=== PATIENT | male | born 1980 | race Caucasian/White ===

== ENCOUNTER 2019-02-17 05:49 | Inpatient (IN) | payer OTHER ==
[~2019-02-17] VITALS: Ht 172.7 cm; Wt 88.0 kg
[2019-02-17] VITALS (10 sets, daily range): BP systolic 103–134; BP diastolic 54–69
[~2019-02-17 05:49] MED LIST: DOCU-109 PO; POLY17PO29 PO
[2019-02-17] MEDS ORDERED: BUPIVACAINE-EPI 0.25%-1:200000 MPF 30 ML VIAL. ONE (06:06)
[2019-02-17] MEDS ORDERED: PROCHLORPERAZINE 10 MG/2 ML VIAL. IV PRN (07:00)
[2019-02-17] MEDS ORDERED: IV RINGERS,LACTATED 1000ML 1,000 ML IV SCH (07:00)
[2019-02-17] MEDS ORDERED: LIDOCAINE 1% PF 2 ML VIAL. ID PRN (07:00)
[2019-02-17] MEDS ORDERED: fentaNYL PF VIAL 100 MCG/2 ML VIAL IV PRN (07:00)
[2019-02-17] MEDS ORDERED: ONDANSETRON PF 4 MG/2 ML VIAL. IV PRN ×2 (07:00→10:15)
[2019-02-17] MEDS ORDERED: PROPOFOL 20 ML IV ONE (07:34)
[2019-02-17] MEDS ORDERED: LIDOCAINE 2% PF 5 ML VIAL. ONE (07:34)
[2019-02-17] MEDS ORDERED: ROCURONIUM 50 MG/5 ML VIAL. ONE (07:35)
[2019-02-17] MEDS ORDERED: fentaNYL PF VIAL 100 MCG/2 ML VIAL ONE ×2 (07:35→08:54)
[2019-02-17] MEDS ORDERED: SUCCINYLCHOLINE 200 MG/10 ML VIAL. ONE (07:35)
[2019-02-17] MEDS ORDERED: ceFAZolin 2GM PREMIX 2 GM/50 ML BAG IV ONE (08:00)
[2019-02-17] MEDS ORDERED: DEXAMETHASONE SOD PHOS 20 MG/5 ML VIAL. ONE (08:09)
[2019-02-17] MEDS ORDERED: DESFLURANE 61 TO 120 MINUTES IH ONE (08:09)
[2019-02-17] MEDS ORDERED: GLYCOPYRROLATE 1 MG/5 ML VIAL. ONE (08:23)
[2019-02-17] MEDS ORDERED: NEOSTIGMINE METHYLSULFATE 5 MG/5 ML SYRINGE. ONE (08:23)
[2019-02-17] MEDS ORDERED: ONDANSETRON PF 4 MG/2 ML VIAL. ONE (08:23)
[2019-02-17] MEDS ORDERED: ePHEDrine PF IN SALINE 50 MG/10 ML SYRINGE. IV ONE (08:24)
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
[2019-02-17] MEDS ORDERED: 0.9 % SODIUM CHLORIDE 10 ML DISP.SYRIN. IV PRN (10:15)
[2019-02-17] MEDS ORDERED: MORPHINE SULFATE 2 MG/ML VIAL. IV PRN (10:15)
[2019-02-17] MEDS ORDERED: oxyCODONE/APAP 5/325 1 TAB TABLET PO PRN (10:15)
[2019-02-17] MEDS: fentaNYL PF VIAL 100 MCG/2 ML VIAL IV PRN ×2 (10:40→10:51)
[2019-02-17] MEDS: MORPHINE SULFATE 2 MG/ML VIAL. IV PRN ×2 (10:49→10:59)
[2019-02-17] MEDS: HYDROmorphone 2 MG/ML VIAL IV PRN ×2 (11:12→11:26)
[2019-02-17] MEDS: IV DEXTROSE 5%-LACT RINGERS 1,000 ML IV SCH ×2 (12:25→23:24)
[2019-02-17] MEDS: KETOROLAC 15 MG/ML VIAL. IV SCH ×3 (12:26→23:54)
[2019-02-17] MEDS: cefOXitin SODIUM IV Push 1 GM VIAL. IVP SCH ×2 (15:25→21:43)
--- NOTE | 2019-02-17 16:21 | RAD ---
AP view of the abdomen Clinical indications: Incorrect needle count. FINDINGS: Surgical drainage catheter is seen within the right side of the abdomen and pelvis. NG tube is in place and tip is seen within the proximal body of the stomach. 2 metallic foreign bodies are projected over the lateral aspect of the right side of the pelvis. No metallic needle is evident. No significant dilatation of large or small bowel is seen. IMPRESSION: No metallic needle is identified. 2 round metallic foreign bodies are seen within the lateral aspect of the right side of the pelvis. Electronically signed by: Luis E Jacinto MD (02/17/2019 4:18 PM) [facility]
[2019-02-17] MEDS: oxyCODONE/APAP 5/325 1 TAB TABLET PO PRN (19:47)
[2019-02-18] MEDS: oxyCODONE/APAP 5/325 1 TAB TABLET PO PRN ×2 (00:44→09:27)
[2019-02-18 03:00] VITALS: BP 124/69
[2019-02-18] MEDS: cefOXitin SODIUM IV Push 1 GM VIAL. IVP SCH (05:53)
[2019-02-18] MEDS: KETOROLAC 15 MG/ML VIAL. IV SCH (05:53)
[2019-02-18 07:00] VITALS: BP 128/87
--- NOTE | 2019-02-18 07:31 | DISCH ---
DISCHARGE INSTRUCTIONS Condition on Discharge Condition on Discharge: Stable Activity After Discharge Activity Instructions for Disc: Activity as tolerated Lifting Instructions after Dis: No heavy lifting Diet after Discharge Diet after Discharge: Regular Wound Incision Care Wound/Incision Care: Ice to area for comfort Other wound/incision instructi: eric dela cruz Wednesday Follow-Up Follow up with: Dr York in two weeks MARCO FROST MD Feb 18, 2019 07:31
--- NOTE | 2019-02-18 07:32 | PDOC ---
Provider Note Provider Note SURG Dany for Dr York pod 1 tolerating po will d/c AURORA and MARCO Tyler MD Feb 18, 2019 07:32
[2019-02-18] MEDS ORDERED: POLYETHYLENE GLYCOL 3350 17 GM PACKET. PO SCH (09:00)
--- NOTE | 2019-02-20 18:06 | PATHOLOGY ---
[facility] Accession Number: [id number] . 01 Material submitted: . hernia - HERNIA SAC . 01 Clinical history: . Ventral hernia . 02 Diagnosis: Segments of fibromembranous, fibroadipose, and dense fibroconnective tissue, ventral hernia repair: - Hernia sac showing focal nodular reactive fibrosis and focal foreign body granulomatous reaction. 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 02 Electronically signed: . Moisés Jain MD, Pathologist NPI- [id number] . 01 Gross description: . The specimen is received in formalin, labeled "Bobby Leroy, hernia sac", are two field-pink, focally hemorrhagic fibromembranous tissue with attached adipose tissues measuring 11.0 x 4.4 x 0.8 cm and 9.0 x 4.5 x 1.0 cm. Both the fragments are serially sectioned to reveal a 1.0 x 1.0 x 0.6 cm possible nodule. The remaining cut surface shows yellow lobulated adipose and a field-pink fibrous tissue. Medicine Aide tissue is submitted in A1-A3. (A1 = possible nodule) ([facility]; 02/17/2019) SHS/SHS . 02 Pathologist provided ICD-10: K43.9 . 02 CPT . 925157 Specimen Comment: A courtesy copy of this report has been sent to Specimen Comment: [phone], . Specimen Comment: Report sent to / DR HAJI Performed at: 01 [facility] [address], [place], [place] [id number] MD Teja Be MD Phone: [phone] Performed at: 02 [facility] [place] [address] [place], [place] [id number] MD Moisés Jain MD Phone: [phone]
== END 2019-02-18 11:24 | disposition home or self-care (01) | DRG 355 ==
LOC: SURG 05:49 → EDBD 05:49 → EEVIPCON 08:00 → 4 NORTH 10:04
PROVIDERS: ADMIT Surgery; ATTEND Surgery
PROC: 0WJF4ZZ Inspection of Abdominal Wall, Percutaneous Endoscopic Approach (ICD-10-PCS; 2019-02-17)
PROC: 8E0W4CZ Robotic Assisted Procedure of Trunk Region, Percutaneous Endoscopic Approach (ICD-10-PCS; 2019-02-17)
PROC: 0WUF0JZ Supplement Abdominal Wall with Synthetic Substitute, Open Approach (ICD-10-PCS; principal; 2019-02-17 08:00)
DX: K43.2 Incisional hernia without obstruction or gangrene (principal); I10 Essential (primary) hypertension; K59.00 Constipation, unspecified; Z53.31 Laparoscopic surgical procedure converted to open procedure
CPT/HCPCS: 36415; 74018; 87641; 88302; A7015; C1781; J0171; J0330; J0694; J0696; J0780; J1100; J1170; J1885; J2001; J2270; J2405; J2704; J2710; J3010; J3490; J7120